=== PATIENT | male | born 1975 | race Caucasian/White ===

== ENCOUNTER 2016-10-21 22:05 | Emergency (ER) | payer OTHER ==
[~2016-10-21] VITALS: Ht 170.2 cm; Wt 60.0 kg
[2016-10-21 22:10] VITALS: BP 126/66
== END 2016-10-21 23:38 | disposition home or self-care (01) ==
LOC: ED 22:25
DX: S59.901A Unspecified injury of right elbow, initial encounter (principal); S00.81XA Abrasion of other part of head, initial encounter; W01.0XXA Fall on same level from slipping, tripping and stumbling without subsequent striking against object, initial encounter; Y92.89 Other specified places as the place of occurrence of the external cause; Y93.89 Activity, other specified; Y99.8 Other external cause status
CPT/HCPCS: 99284

== ENCOUNTER 2016-11-08 16:42 | Inpatient (IN) | payer OTHER ==
[~2016-11-08] VITALS: Ht 170.2 cm; Wt 59.4 kg
[2016-11-08] MEDS ORDERED: PLEASE ENTER HEIGHT AND WEIGHT MC SCH (17:00)
[2016-11-08] MEDS ORDERED: BUPIVACAINE/PF-EPI 0.25% 1:200K INFIL ONE (17:00)
[2016-11-08] MEDS ORDERED: SODIUM CHLORIDE 0.9% 1,000ML IVBOLUS ONE (17:00)
[2016-11-08] MEDS ORDERED: SODIUM CHLORIDE FLUSH 10ML SYR IVF ONE (17:00)
[2016-11-08] MEDS ORDERED: ZIPR60CA2 PO (17:01)
[2016-11-08 17:22] LABS: ASPARTATE AMINO TRANSFERASE 13 U/L (15-37); BLOOD UREA NITROGEN 14 mg/dL (7-18)
[2016-11-08] MEDS ORDERED: BUPIVACAINE 0.25% ONE (17:31)
[2016-11-08 17:35] LABS: IS PT STATUS REG ER OR PRE ER? YES
[2016-11-08] MEDS ORDERED: NITROGLYCERIN 0.4 MG BOTTLE (25 TABS) SL PRN (19:30)
[2016-11-08] MEDS ORDERED: hydrALAzine 20 MG/ML, 1ML IVPush PRN (19:30)
[2016-11-08] MEDS ORDERED: PANTOPRAZOLE 40 MG IV IVPush SCH (19:30)
[2016-11-08] MEDS ORDERED: ZIPRASIDONE HCL 60 MG PO SCH (21:00)
[2016-11-08] MEDS ORDERED: ZIPRASIDONE 20MG CAPSULE ONE (21:32)
[2016-11-08 22:52] VITALS: BP 133/89
[2016-11-09] MEDS: TEMAZEPAM 15 MG CAPSULE PO PRN ×2 (02:37)
[2016-11-09] MEDS: ACETAMINOPHEN 325 MG TABLET PO PRN ×2 (02:37→16:47)
[2016-11-09 02:42] VITALS: BP 113/70
[2016-11-09 05:34] LABS: BLOOD UREA NITROGEN 20 mg/dL (7-18)
[2016-11-09] MEDS: PANTOPROZOLE 40MG TABLET PO SCH (07:30)
[2016-11-09] MEDS: HEPARIN 5,000 UNITS/ML, 1ML SQ SCH ×3 (07:59→16:42)
[2016-11-09 08:00] VITALS: BP 110/78
[2016-11-09 09:59] LABS: IS PT STATUS REG ER OR PRE ER? NO
[2016-11-09] MEDS ORDERED: REGADENOSON 0.4 MG/5 ML SYRINGE ONE (10:42)
[2016-11-09] MEDS ORDERED: NICOTINE 7 MG/24 HR PATCH.TD24 TD SCH (13:00)
[2016-11-09 13:34] VITALS: BP 145/93
[2016-11-09] MEDS: ZIPRASIDONE 20MG CAPSULE PO SCH ×2 (13:37→22:25)
[2016-11-09] MEDS ORDERED: LORazepam 2 MG/ML, 1ML IVPush ONE (17:00)
[2016-11-09] MEDS ORDERED: GADOBUTROL 7.5 MMOL/7.5 ML PFS ONE (18:05)
[2016-11-09 20:00] VITALS: BP_SYST 103; BP_SYST 111; BP_SYST 95; BP_DIAS 62; BP_DIAS 76; BP_DIAS 78
[2016-11-10] MEDS: TEMAZEPAM 15 MG CAPSULE PO PRN (00:01)
[2016-11-10] MEDS: ACETAMINOPHEN 325 MG TABLET PO PRN (00:01)
[2016-11-10] MEDS: HEPARIN 5,000 UNITS/ML, 1ML SQ SCH ×2 (00:02→09:45)
[2016-11-10 02:00] VITALS: BP_SYST 100; BP_SYST 104; BP_SYST 114; BP_DIAS 67; BP_DIAS 73; BP_DIAS 78
[2016-11-10 08:00] VITALS: BP_SYST 101; BP_SYST 104; BP_SYST 110; BP_DIAS 70; BP_DIAS 73; BP_DIAS 82
[2016-11-10] MEDS ORDERED: DIPHENHYDRAMINE 50 MG/ML, 1ML IVPush ONE (09:00)
[2016-11-10] MEDS: PANTOPROZOLE 40MG TABLET PO SCH (09:44)
[2016-11-10] MEDS: ZIPRASIDONE 20MG CAPSULE PO SCH (09:45)
[2016-11-10] MEDS ORDERED: FAMOTIDINE 20 MG/2 ML IVPush ONE (10:00)
[2016-11-10] MEDS ORDERED: methylPREDNISolone SOD SUCC 125 MG/2 ML IVPush ONE (10:00)
== END 2016-11-10 15:26 | disposition home or self-care (01) | DRG 312 ==
LOC: ED 18:46 → EDIP 19:09 → 4EST 22:30 → OBSVTOIN 11-09 16:41
PROVIDERS: ADMIT Internal Medicine
PROC: 0HQ1XZZ Repair Face Skin, External Approach (ICD-10-PCS; principal; 2016-11-08)
DX: R55 Syncope and collapse (principal); R07.89 Other chest pain; S01.81XA Laceration without foreign body of other part of head, initial encounter; F25.9 Schizoaffective disorder, unspecified; Z72.0 Tobacco use; Z88.8 Allergy status to other drugs, medicaments and biological substances; Z91.041 Radiographic dye allergy status; Z91.013 Allergy to seafood; K21.9 Gastro-esophageal reflux disease without esophagitis
CPT/HCPCS: 12011; 36415; 70553; 71010; 71275; 78452; 80048; 80053; 80061; 82533; 82607; 82746; 83735; 84439; 84443; 84484; 85025; 85379; 85610; 85730; 86141; 93005; 93017; 93306; 93880; A9585; G0378; J1644; J2785; A9502; C9898; J1200; J2060; J2930; S0028

== ENCOUNTER 2017-09-01 22:58 | Emergency (ER) | payer MEDICAID ==
[~2017-09-01] VITALS: Ht 170.2 cm; Wt 66.9 kg
[~2017-09-01 22:58] MED LIST: ZIPR60CA2 PO
[2017-09-01 23:08] VITALS: BP 149/99
== END 2017-09-01 23:55 | disposition left against medical advice (07) ==
LOC: ED 23:49
DX: F99 Mental disorder, not otherwise specified (principal); Z53.21 Procedure and treatment not carried out due to patient leaving prior to being seen by health care provider

== ENCOUNTER 2019-04-07 16:38 | Emergency (ER) | payer MEDICAID ==
[~2019-04-07] VITALS: Ht 170.2 cm; Wt 78.1 kg
[2019-04-07 16:42] VITALS: BP 114/82
[2019-04-07] MEDS ORDERED: PROPARACAINE OPHTH 0.5%, 15ML ONE (16:57)
[2019-04-07] MEDS ORDERED: FLUORESCEIN OPHTHALMIC 1 MG STRIP ONE (16:57)
--- NOTE | 2019-04-07 17:03 | NUR ---
PA TO BEDSIDE FOR ASSESSMENT.
--- NOTE | 2019-04-07 17:23 | NUR ---
THIS IS A 43YO MALE THAT STATES HIS "EYES HURT AND THEY HAVEN'T BEEN WATERING". PT REPORTS THIS BEGAN ABOUT 2 MONTHS AGO BUT HAS GOTTEN WORSE TODAY AFTER HE WOKE UP. PT STATES TO CLEAR HIS VISION HE HAS TO RUB HIS EYES. PT IS SITTING IN CHAIR. NADN CONVERSING IN FULL SENTENCES.
[2019-04-07] MEDS ORDERED: PROPARACAINE OPHTH 0.5%, 15ML EACHEYE ONE (17:30)
[2019-04-07] MEDS ORDERED: FLUORESCEIN OPHTHALMIC 1 MG STRIP EACHEYE ONE (17:30)
== END 2019-04-07 18:11 | disposition home or self-care (01) ==
LOC: ED 18:02
DX: H10.023 Other mucopurulent conjunctivitis, bilateral (principal); S05.01XA Injury of conjunctiva and corneal abrasion without foreign body, right eye, initial encounter; X58.XXXA Exposure to other specified factors, initial encounter; J30.2 Other seasonal allergic rhinitis; F25.9 Schizoaffective disorder, unspecified; Y93.89 Activity, other specified; Y92.89 Other specified places as the place of occurrence of the external cause; Y99.8 Other external cause status
CPT/HCPCS: 99283

== ENCOUNTER 2019-04-29 12:20 | Emergency (ER) | payer MEDICAID ==
[~2019-04-29] VITALS: Ht 170.2 cm; Wt 74.9 kg
[2019-04-29 12:23] VITALS: BP 122/81
--- NOTE | 2019-04-29 12:50 | NUR ---
PT AMBULATED TO ROOM FROM LOBBY WITH STEADY GAIT
[2019-04-29] MEDS ORDERED: IBUPROFEN 600 MG TABLET PO ONE (13:00)
[2019-04-29] MEDS ORDERED: IBUPROFEN 200 MG TABLET ONE (13:02)
== END 2019-04-29 13:09 | disposition home or self-care (01) ==
LOC: ED 13:00
DX: K08.89 Other specified disorders of teeth and supporting structures (principal); F25.9 Schizoaffective disorder, unspecified
CPT/HCPCS: 99283

== ENCOUNTER 2019-05-07 12:42 | Emergency (ER) | payer MEDICAID ==
[~2019-05-07] VITALS: Ht 170.2 cm; Wt 80.0 kg
[2019-05-07 12:55] VITALS: BP 125/87
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
[2019-05-07 13:32] LABS: BASOPHILS # (AUTO) 0.05 x10^3/uL (0-0.1); BASOPHILS % (AUTO) 0 % (0-1); EOSINOPHILS # (AUTO) 0.13 x10^3/uL (0-0.4); EOSINOPHILS % (AUTO) 1 % (1-7); LYMPHOCYTES # (AUTO) 2.44 x10^3/uL (1-3.4); LYMPHOCYTES % (AUTO) 18 % (22-44); MD NO; MEAN CORPUSCULAR HEMOGLOBIN 31.2 pg (27.5-34.5); MEAN CORPUSCULAR HGB CONC 33.4 g/dL (33.2-36.2); MEAN CORPUSCULAR VOLUME 93.6 fL (81-97); MEAN PLATELET VOLUME 8.5 fL (7.4-10.4); MONOCYTES # (AUTO) 0.57 x10^3/uL (0.2-0.8); MONOCYTES % (AUTO) 4 % (2-9); NEUTROPHILS # (AUTO) 10.34 x10^3/uL (1.8-6.8); NEUTROPHILS % (AUTO) 77 % (42-75); PLATELET COUNT 292 x10^3/uL (130-400); RED CELL DISTRIBUTION WIDTH 13.1 % (9.4-14.8)
--- NOTE | 2019-05-07 13:38 | NUR ---
REPORT TO ROBE
[2019-05-07] MEDS ORDERED: BENZ2AMP4 PO (13:39)
[2019-05-07] MEDS ORDERED: QUET200T7 PO (13:40)
[2019-05-07] MEDS ORDERED: HALDOL (13:40)
[2019-05-07 13:41] LABS: ALBUMIN 3.9 g/dL (3.4-5.0); ANION GAP 4 mmol/L (5-15); CALCIUM 8.7 mg/dL (8.5-10.1); CHLORIDE 107 mmol/L (98-107); CREATININE 0.72 mg/dL (0.7-1.3); SALICYLATE LEVEL 5.1 mg/dL (2.8-20.0)
--- NOTE | 2019-05-07 13:44 | NUR ---
RECEIVED REPORT FROM ERIC BARRAZA. PT RESTING ON [facility]. LON. SITTER AT BEDSIDE. ROOM SECURED.
[2019-05-07 13:49] LABS: AMPHETAMINE SCREEN, URINE Negative (Negative); BARBITURATE SCREEN, URINE Negative (Negative); CANNABINOID SCREEN, URINE Negative (Negative); METHADONE SCREEN, URINE Negative (Negative); OPIATE SCREEN, URINE Negative (Negative)
[2019-05-07 13:55] LABS: BENZODIAZEPINE SCREEN, URINE Negative (Negative); COCAINE SCREEN, URINE Negative (Negative)
--- NOTE | 2019-05-07 14:07 | NUR ---
BREAK RN: MORALES IBARRA AT BEDSIDE ASSESSING PT NOW.
--- NOTE | 2019-05-07 14:07 | NUR ---
BREAK RN: FOOD ORDERED FOR PT.
[2019-05-07] MEDS ORDERED: PRED5DRO20 OP (14:23)
[2019-05-07] MEDS ORDERED: AMOXICILLIN (14:23)
[2019-05-07] MEDS ORDERED: QUETIAPINE 25MG TABLET PO ONE (14:30)
--- NOTE | 2019-05-07 14:51 | NUR ---
PT RESTING ON GURALEJANDRO. LON. SITTER REMAINS AT BEDSIDE. ROOM REMAINS SECURE. SI LUNCH TRAY PROVIDED FOR PT.
--- NOTE | 2019-05-07 15:38 | NUR ---
PT RESTING ON YASMIN. LON. SITTER REMAINS AT BEDSIDE. ROOM REMAINS SECURE.
[2019-05-07] MEDS ORDERED: QUETIAPINE 25MG TABLET ONE (15:39)
--- NOTE | 2019-05-07 15:52 | NUR ---
REPORT GIVEN TO Shala, RECEIVING RN IRAIDAU. ALL QUESTIONS ANSWERED. AWAITING PT TRANSPORT.
[2019-05-08] MEDS ORDERED: [UNRECOGNIZED DRUG - CODE] OP (07:22)
== END 2019-05-07 16:38 ==
LOC: ED 14:36
DX: R45.851 Suicidal ideations (principal); F20.9 Schizophrenia, unspecified
CPT/HCPCS: 36415; 80048; 80307; 82040; 85025; 99285

== ENCOUNTER 2019-05-07 16:25 | Inpatient (IN) | payer MEDICAID ==
[2019-05-06] MEDS: BENZTROPINE 1 MG TABLET PO SCH (21:00)
[~2019-05-07] VITALS: Ht 170.2 cm; Wt 74.7 kg
[~2019-05-07 16:25] MED LIST changes: +AMOXICILLIN; +BENZ2AMP4 PO; +HALDOL; +PRED5DRO20 OP; +QUET200T7 PO
[2019-05-07 16:30] VITALS: BP 119/81
[2019-05-07] MEDS ORDERED: POLYETHYLENE GLYCOL 17 GM PACKET PO PRN (17:00)
[2019-05-07] MEDS ORDERED: ONDANSETRON ODT 4 MG PO PRN (17:00)
[2019-05-07] MEDS ORDERED: BISACODYL 10 MG SUPP PR PRN (17:00)
[2019-05-07] MEDS ORDERED: DOCUSATE 100 MG CAPSULE PO PRN (17:00)
[2019-05-07] MEDS ORDERED: LORazepam 1MG TABLET PO PRN (17:00)
[2019-05-07] MEDS ORDERED: PLEASE ENTER HEIGHT AND WEIGHT MC SCH ×2 (17:30)
[2019-05-07 17:58] VITALS: BP 119/81
[2019-05-07] MEDS: NICOTINE 14MG/24 HR PATCH.TD24 TD SCH (18:47)
[2019-05-07 19:27] VITALS: BP 91/51
[2019-05-07] MEDS: ZIPRASIDONE 20MG CAPSULE PO SCH (21:00)
[2019-05-07] MEDS: QUETIAPINE 100MG TABLET PO SCH (21:00)
[2019-05-08] MEDS ORDERED: FLU VACC QS2019-20 36MOS UP/PF 0.5 ML IM-VACC ONE (04:00)
[2019-05-08 05:27] LABS: MICROSCOPIC NOT IND
[2019-05-08 05:42] LABS: CULTURE INDICATED? NO
[2019-05-08 05:51] LABS: CHOL/HDL RATIO 4.7; LDL/HDL RATIO 2.9 (0.5-3.0)
[2019-05-08] MEDS ORDERED: [UNRECOGNIZED DRUG - CODE] OP (07:22)
[2019-05-08 07:30] VITALS: BP 98/64
[2019-05-08 07:34] VITALS: BP 128/88
[2019-05-08] MEDS ORDERED: PROPYLENE GLYCOL OP PRN (09:00)
[2019-05-08] MEDS ORDERED: PEG OP PRN (09:00)
[2019-05-08] MEDS: BENZTROPINE 1 MG TABLET PO SCH ×2 (09:15→20:34)
[2019-05-08] MEDS: AMOXICILLIN 500 MG CAPSULE PO SCH ×2 (09:15→20:34)
[2019-05-08] MEDS: ZIPRASIDONE 20MG CAPSULE PO SCH ×2 (09:15→20:33)
[2019-05-08 19:24] VITALS: BP 103/69
[2019-05-08] MEDS: NICOTINE 14MG/24 HR PATCH.TD24 TD SCH (19:57)
[2019-05-08] MEDS: ACETAMINOPHEN 325 MG TABLET PO PRN (20:33)
[2019-05-08] MEDS: QUETIAPINE 100MG TABLET PO SCH (20:34)
[2019-05-09 07:27] VITALS: BP 125/81
[2019-05-09] MEDS: ZIPRASIDONE 20MG CAPSULE PO SCH ×2 (08:08→20:10)
[2019-05-09] MEDS: BENZTROPINE 1 MG TABLET PO SCH ×2 (08:08→20:10)
[2019-05-09] MEDS: AMOXICILLIN 500 MG CAPSULE PO SCH ×2 (08:09→20:10)
[2019-05-09] MEDS: NICOTINE 14MG/24 HR PATCH.TD24 TD SCH (09:00)
[2019-05-09] MEDS: ACETAMINOPHEN 325 MG TABLET PO PRN ×2 (14:11→20:10)
[2019-05-09 19:35] VITALS: BP 103/72
[2019-05-09] MEDS: QUETIAPINE 100MG TABLET PO SCH (20:10)
[2019-05-10 07:32] VITALS: BP 126/84
[2019-05-10] MEDS: BENZTROPINE 1 MG TABLET PO SCH ×2 (08:12→20:45)
[2019-05-10] MEDS: ZIPRASIDONE 20MG CAPSULE PO SCH ×2 (08:12→20:47)
[2019-05-10] MEDS: AMOXICILLIN 500 MG CAPSULE PO SCH ×2 (08:12→20:46)
[2019-05-10] MEDS: NICOTINE 14MG/24 HR PATCH.TD24 TD SCH (08:13)
[2019-05-10] MEDS: ACETAMINOPHEN 325 MG TABLET PO PRN (08:21)
[2019-05-10 19:29] VITALS: BP 109/74
[2019-05-10] MEDS: QUETIAPINE 100MG TABLET PO SCH (20:46)
[2019-05-11 07:34] VITALS: BP 119/82
[2019-05-11] MEDS: AMOXICILLIN 500 MG CAPSULE PO SCH ×2 (08:22→20:32)
[2019-05-11] MEDS: NICOTINE 14MG/24 HR PATCH.TD24 TD SCH (08:23)
[2019-05-11] MEDS: BENZTROPINE 1 MG TABLET PO SCH ×2 (08:23→20:32)
[2019-05-11] MEDS: ZIPRASIDONE 20MG CAPSULE PO SCH ×2 (08:23→20:31)
[2019-05-11] MEDS: ACETAMINOPHEN 325 MG TABLET PO PRN ×2 (08:23→14:12)
[2019-05-11] MEDS: CALCIUM CARBONATE 500 MG TAB.CHEW PO PRN ×2 (17:12→20:45)
[2019-05-11 19:31] VITALS: BP 112/75
[2019-05-11] MEDS: QUETIAPINE 100MG TABLET PO SCH (20:32)
[2019-05-11] MEDS ORDERED: CALCIUM CARBONATE 500 MG TAB.CHEW PO SCH (21:00)
[2019-05-11] MEDS: CYCLOPENTOLATE OPHTH SOLN 1%, 15ML EACHEYE SCH (21:00)
[2019-05-12 07:15] VITALS: BP 121/82
[2019-05-12] MEDS: ZIPRASIDONE 20MG CAPSULE PO SCH ×2 (08:18→20:34)
[2019-05-12] MEDS: BENZTROPINE 1 MG TABLET PO SCH ×2 (08:18→20:33)
[2019-05-12] MEDS: AMOXICILLIN 500 MG CAPSULE PO SCH ×2 (08:18→20:33)
[2019-05-12] MEDS: NICOTINE 14MG/24 HR PATCH.TD24 TD SCH (08:22)
[2019-05-12] MEDS: CYCLOPENTOLATE OPHTH SOLN 1%, 15ML EACHEYE SCH ×2 (09:24→21:00)
[2019-05-12 19:15] VITALS: BP 99/64
[2019-05-12] MEDS: QUETIAPINE 100MG TABLET PO SCH (20:33)
[2019-05-12] MEDS: CALCIUM CARBONATE 500 MG TAB.CHEW PO PRN (21:05)
[2019-05-13 07:35] VITALS: BP 92/69
[2019-05-13] MEDS: ZIPRASIDONE 20MG CAPSULE PO SCH ×2 (08:24→19:59)
[2019-05-13] MEDS: BENZTROPINE 1 MG TABLET PO SCH ×2 (08:24→19:59)
[2019-05-13] MEDS: CYCLOPENTOLATE OPHTH SOLN 1%, 15ML EACHEYE SCH ×2 (08:25→20:02)
[2019-05-13] MEDS: NICOTINE 14MG/24 HR PATCH.TD24 TD SCH (08:25)
[2019-05-13] MEDS: AMOXICILLIN 500 MG CAPSULE PO SCH ×2 (08:25→19:58)
[2019-05-13] MEDS: CALCIUM CARBONATE 500 MG TAB.CHEW PO PRN ×2 (13:17→19:49)
[2019-05-13 13:29] VITALS: BP 105/73
[2019-05-13 19:19] VITALS: BP 107/70
[2019-05-13] MEDS: QUETIAPINE 100MG TABLET PO SCH (19:59)
[2019-05-14 07:48] VITALS: BP 112/75
[2019-05-14] MEDS: NICOTINE 14MG/24 HR PATCH.TD24 TD SCH (08:46)
[2019-05-14] MEDS: BENZTROPINE 1 MG TABLET PO SCH ×2 (08:47→20:07)
[2019-05-14] MEDS: ZIPRASIDONE 20MG CAPSULE PO SCH ×2 (08:47→20:07)
[2019-05-14] MEDS: CYCLOPENTOLATE OPHTH SOLN 1%, 15ML EACHEYE SCH ×2 (08:54→20:06)
[2019-05-14 19:24] VITALS: BP 101/69
[2019-05-14] MEDS: QUETIAPINE 100MG TABLET PO SCH (20:06)
[2019-05-14] MEDS: CALCIUM CARBONATE 500 MG TAB.CHEW PO PRN (20:55)
[2019-05-15 07:09] VITALS: BP 107/72
[2019-05-15] MEDS: CYCLOPENTOLATE OPHTH SOLN 1%, 15ML EACHEYE SCH ×2 (09:00→20:05)
[2019-05-15] MEDS: NICOTINE 14MG/24 HR PATCH.TD24 TD SCH (09:07)
[2019-05-15] MEDS: ZIPRASIDONE 20MG CAPSULE PO SCH ×2 (09:08→20:04)
[2019-05-15] MEDS: BENZTROPINE 1 MG TABLET PO SCH ×2 (09:09→20:04)
[2019-05-15 19:32] VITALS: BP 110/69
[2019-05-15] MEDS: QUETIAPINE 100MG TABLET PO SCH (20:05)
[2019-05-16 07:31] VITALS: BP 119/75
[2019-05-16] MEDS: BENZTROPINE 1 MG TABLET PO SCH ×2 (08:39→20:33)
[2019-05-16] MEDS: ZIPRASIDONE 20MG CAPSULE PO SCH (08:39)
[2019-05-16] MEDS: NICOTINE 14MG/24 HR PATCH.TD24 TD SCH (08:48)
[2019-05-16] MEDS: CYCLOPENTOLATE OPHTH SOLN 1%, 15ML EACHEYE SCH ×2 (09:02→20:37)
[2019-05-16] MEDS: CALCIUM CARBONATE 500 MG TAB.CHEW PO PRN (11:32)
[2019-05-16] MEDS: [UNRECOGNIZED DRUG - OTHER] OP SCH ×2 (15:54→20:37)
[2019-05-16 19:37] VITALS: BP 114/73
[2019-05-16] MEDS: QUETIAPINE 100MG TABLET PO SCH (20:34)
[2019-05-17] MEDS: [UNRECOGNIZED DRUG - OTHER] OP SCH ×4 (06:27→20:13)
[2019-05-17 07:43] VITALS: BP 102/68
[2019-05-17] MEDS: BENZTROPINE 1 MG TABLET PO SCH ×2 (08:40→20:12)
[2019-05-17] MEDS: NICOTINE 14MG/24 HR PATCH.TD24 TD SCH (08:40)
[2019-05-17] MEDS: CYCLOPENTOLATE OPHTH SOLN 1%, 15ML EACHEYE SCH ×2 (08:41→20:13)
[2019-05-17] MEDS ORDERED: BENZ1TAB61 PO (13:22)
[2019-05-17] MEDS ORDERED: NICO-486 TD (13:22)
[2019-05-17] MEDS ORDERED: PEG OP (13:22)
[2019-05-17] MEDS ORDERED: CYCL2DRO5 EACHEYE (13:22)
[2019-05-17] MEDS ORDERED: PREDNISOLONE ACETATE OP (13:22)
[2019-05-17] MEDS ORDERED: PROPYLENE GLYCOL OP (13:22)
[2019-05-17] MEDS ORDERED: QUET100T PO (13:22)
[2019-05-17] MEDS: QUETIAPINE 100MG TABLET PO SCH (20:12)
[2019-05-17 21:10] VITALS: BP 119/70
[2019-05-18] MEDS: [UNRECOGNIZED DRUG - OTHER] OP SCH (05:45)
[2019-05-18 07:13] VITALS: BP 107/74
[2019-05-18] MEDS: CYCLOPENTOLATE OPHTH SOLN 1%, 15ML EACHEYE SCH (07:41)
[2019-05-18] MEDS: BENZTROPINE 1 MG TABLET PO SCH (07:42)
[2019-05-18] MEDS: NICOTINE 14MG/24 HR PATCH.TD24 TD SCH (07:42)
== END 2019-05-18 09:00 | disposition home or self-care (01) | DRG 885 ==
LOC: 3E 16:25
PROVIDERS: ADMIT Psychiatry & Neurology Psychosomatic Medicine; ATTEND Psychiatry & Neurology Psychosomatic Medicine
DX: F33.2 Major depressive disorder, recurrent severe without psychotic features (principal); F20.0 Paranoid schizophrenia; F17.210 Nicotine dependence, cigarettes, uncomplicated; Z79.899 Other long term (current) drug therapy; Z80.1 Family history of malignant neoplasm of trachea, bronchus and lung; Z88.8 Allergy status to other drugs, medicaments and biological substances
CPT/HCPCS: 36415; 71045; 80061; 81003; 82140; 82607; 84439; 84443; 90686; 93005

== ENCOUNTER 2019-07-17 12:39 | Emergency (ER) | payer MEDICAID ==
[~2019-07-17] VITALS: Ht 170.2 cm; Wt 73.7 kg
[~2019-07-17 12:39] MED LIST changes: +BENZ1TAB61 PO; +CYCL2DRO5 EACHEYE; +NICO-486 TD; +PEG OP; +PREDNISOLONE ACETATE OP; +PROPYLENE GLYCOL OP; +QUET100T PO; +[UNRECOGNIZED DRUG - CODE] OP
[2019-07-17 13:02] VITALS: BP 114/81
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
--- NOTE | 2019-07-17 13:43 | NUR ---
URINE COLLECTED AND SENT TO LAB.
--- NOTE | 2019-07-17 13:58 | NUR ---
PSYCHIATRY GOLF COURSE STARTER (MS. BASILIO) AT BEDSIDE LUNCH TRAY ORDERED (SUICIDE PRECAUTIONS)
[2019-07-17] MEDS ORDERED: QUETIAPINE 25MG TABLET PO PRN (14:00)
[2019-07-17 14:09] LABS: BASOPHILS # (AUTO) 0.03 x10^3/uL (0-0.1); BASOPHILS % (AUTO) 0 % (0-1); EOSINOPHILS # (AUTO) 0.11 x10^3/uL (0-0.4); EOSINOPHILS % (AUTO) 1 % (1-7); LYMPHOCYTES # (AUTO) 1.94 x10^3/uL (1-3.4); LYMPHOCYTES % (AUTO) 21 % (22-44); MD NO; MEAN CORPUSCULAR HEMOGLOBIN 30.8 pg (27.5-34.5); MEAN CORPUSCULAR HGB CONC 33.7 g/dL (33.2-36.2); MEAN CORPUSCULAR VOLUME 91.4 fL (81-97); MONOCYTES # (AUTO) 0.56 x10^3/uL (0.2-0.8); MONOCYTES % (AUTO) 6 % (2-9); NEUTROPHILS % (AUTO) 71 % (42-75); PLATELET COUNT 318 x10^3/uL (130-400); RED BLOOD COUNT 5.01 x10^6/uL (4.38-5.82); RED CELL DISTRIBUTION WIDTH 13.4 % (9.4-14.8)
[2019-07-17 14:15] LABS: AMPHETAMINE SCREEN, URINE Positive (Negative); BARBITURATE SCREEN, URINE Negative (Negative); BENZODIAZEPINE SCREEN, URINE Negative (Negative); CANNABINOID SCREEN, URINE Negative (Negative); COCAINE SCREEN, URINE Negative (Negative); METHADONE SCREEN, URINE Negative (Negative); OPIATE SCREEN, URINE Negative (Negative)
[2019-07-17 14:21] LABS: ALANINE AMINOTRANSFERASE 19 U/L (12-78); ALBUMIN 3.7 g/dL (3.4-5.0); ANION GAP 9 mmol/L (5-15); CALCIUM 8.9 mg/dL (8.5-10.1); CHLORIDE 104 mmol/L (98-107); CREATININE 0.74 mg/dL (0.7-1.3); SALICYLATE LEVEL 3.1 mg/dL (2.8-20.0)
[2019-07-17 14:23] LABS: ALKALINE PHOSPHATASE 50 U/L (45-117); BILIRUBIN,TOTAL 0.6 mg/dL (0.2-1.0); TOTAL PROTEIN 7.3 g/dL (6.4-8.2)
[2019-07-17] MEDS ORDERED: QUET400T7 PO (14:39)
[2019-07-17] MEDS ORDERED: HALO100A3 IM (14:42)
--- NOTE | 2019-07-17 15:07 | NUR ---
Throughput RN note: Chart faxed to [facility], [facility], [facility].
--- NOTE | 2019-07-17 16:08 | NUR ---
PT RESTING COMFORTABLY. ANOTHER WARM BLANKET PROVIDED. PT CALM, PLEASANT AND COOPERATIVE.
== END 2019-07-17 18:09 ==
LOC: ED 13:32
DX: R45.851 Suicidal ideations (principal); F20.9 Schizophrenia, unspecified; F15.10 Other stimulant abuse, uncomplicated
CPT/HCPCS: 36415; 80053; 80307; 85025; 99285

== ENCOUNTER 2019-07-17 16:04 | Inpatient (IN) | payer MEDICAID ==
[~2019-07-17] VITALS: Ht 170.2 cm; Wt 71.1 kg
[~2019-07-17 16:04] MED LIST changes: +HALO100A3 IM; +QUET400T7 PO
[2019-07-17] MEDS ORDERED: ONDANSETRON ODT 4 MG PO PRN (16:30)
[2019-07-17] MEDS ORDERED: ACETAMINOPHEN 325 MG TABLET PO PRN (16:30)
[2019-07-17] MEDS ORDERED: BISACODYL 10 MG SUPP PR PRN (16:30)
[2019-07-17] MEDS ORDERED: POLYETHYLENE GLYCOL 17 GM PACKET PO PRN (16:30)
[2019-07-17] MEDS ORDERED: DOCUSATE 100 MG CAPSULE PO PRN (16:30)
[2019-07-17 18:22] VITALS: BP 114/78
[2019-07-17 18:23] VITALS: BP 114/78
[2019-07-17] MEDS ORDERED: PLEASE ENTER HEIGHT AND WEIGHT MC SCH (18:30)
[2019-07-17 19:47] VITALS: BP 103/70
[2019-07-18 05:37] LABS: BASOPHILS # (AUTO) 0.04 x10^3/uL (0-0.1); BASOPHILS % (AUTO) 0 % (0-1); EOSINOPHILS % (AUTO) 2 % (1-7); LYMPHOCYTES # (AUTO) 2.35 x10^3/uL (1-3.4); LYMPHOCYTES % (AUTO) 26 % (22-44); MD NO; MEAN CORPUSCULAR HEMOGLOBIN 31.2 pg (27.5-34.5); MEAN CORPUSCULAR HGB CONC 34.1 g/dL (33.2-36.2); MEAN CORPUSCULAR VOLUME 91.6 fL (81-97); MEAN PLATELET VOLUME 8.1 fL (7.4-10.4); MONOCYTES # (AUTO) 0.73 x10^3/uL (0.2-0.8); MONOCYTES % (AUTO) 8 % (2-9); NEUTROPHILS # (AUTO) 5.81 x10^3/uL (1.8-6.8); NEUTROPHILS % (AUTO) 64 % (42-75); PLATELET COUNT 294 x10^3/uL (130-400); RED BLOOD COUNT 5.03 x10^6/uL (4.38-5.82); RED CELL DISTRIBUTION WIDTH 13.4 % (9.4-14.8)
[2019-07-18 05:38] LABS: CHLORIDE 107 mmol/L (98-107)
[2019-07-18 06:13] LABS: ANION GAP 6 mmol/L (5-15); CALCIUM 8.9 mg/dL (8.5-10.1); CHOL/HDL RATIO 4.8; CHOLESTEROL, TOTAL 164 mg/dL (140-239); CREATININE 0.72 mg/dL (0.7-1.3); FREE T4 (FREE THYROXINE) 1.49 ng/dL (0.76-1.46); HDL CHOL % 21 % (26-37); HDL CHOLESTEROL (DIRECT) 34 mg/dL (40-60); LDL CHOLESTEROL,CALCULATED 115 mg/dL (54-169); LDL/HDL RATIO 3.4 (0.5-3.0); TRIGLYCERIDES 76 mg/dL (50-200); VLDL CHOLESTEROL 15 mg/dL (0-25)
[2019-07-18 07:17] VITALS: BP 109/75
[2019-07-18] MEDS ORDERED: POTASSIUM CHLORIDE 20 MEQ TAB.ER.PRT PO ONE (07:30)
[2019-07-18] MEDS ORDERED: NICOTINE 14MG/24 HR PATCH.TD24 TD ONE (07:30)
[2019-07-18] MEDS: BENZTROPINE 1 MG TABLET PO SCH ×2 (08:30→20:58)
[2019-07-18 10:58] LABS: MICROSCOPIC INDICATED
[2019-07-18 11:06] LABS: AMPHETAMINE SCREEN, URINE Positive (Negative); BARBITURATE SCREEN, URINE Negative (Negative); BENZODIAZEPINE SCREEN, URINE Negative (Negative); CANNABINOID SCREEN, URINE Negative (Negative); COCAINE SCREEN, URINE Negative (Negative); METHADONE SCREEN, URINE Negative (Negative); OPIATE SCREEN, URINE Negative (Negative)
[2019-07-18 11:12] LABS: CULTURE INDICATED? NO
[2019-07-18 19:08] VITALS: BP 117/81
[2019-07-18] MEDS: QUETIAPINE 200 MG TABLET PO SCH (20:59)
[2019-07-19 07:38] VITALS: BP 116/78
[2019-07-19] MEDS: BENZTROPINE 1 MG TABLET PO SCH ×2 (09:04→20:56)
[2019-07-19] MEDS: SERTRALINE 50MG TABLET PO SCH (15:13)
[2019-07-19 19:24] VITALS: BP 100/65
[2019-07-19] MEDS: QUETIAPINE 200 MG TABLET PO SCH (20:56)
[2019-07-20 07:24] VITALS: BP 114/75
[2019-07-20] MEDS: SERTRALINE 50MG TABLET PO SCH (08:22)
[2019-07-20] MEDS: BENZTROPINE 1 MG TABLET PO SCH ×2 (08:22→20:18)
[2019-07-20 19:47] VITALS: BP 98/62
[2019-07-20] MEDS: QUETIAPINE 200 MG TABLET PO SCH (20:18)
[2019-07-21 07:33] VITALS: BP 101/68
[2019-07-21] MEDS: BENZTROPINE 1 MG TABLET PO SCH ×2 (08:25→20:41)
[2019-07-21] MEDS: SERTRALINE 50MG TABLET PO SCH (08:25)
[2019-07-21 19:15] VITALS: BP 120/80
[2019-07-21] MEDS: QUETIAPINE 200 MG TABLET PO SCH (20:41)
[2019-07-22 07:55] VITALS: BP 103/68
[2019-07-22] MEDS: BENZTROPINE 1 MG TABLET PO SCH ×2 (09:34→20:30)
[2019-07-22] MEDS: SERTRALINE 50MG TABLET PO SCH (09:34)
[2019-07-22 19:40] VITALS: BP 106/67
[2019-07-22] MEDS: QUETIAPINE 200 MG TABLET PO SCH (20:29)
[2019-07-23 07:19] VITALS: BP 108/72
[2019-07-23] MEDS: SERTRALINE 50MG TABLET PO SCH (08:41)
[2019-07-23] MEDS: BENZTROPINE 1 MG TABLET PO SCH ×2 (08:41→20:18)
[2019-07-23] MEDS ORDERED: SERT50TA28 PO (14:04)
[2019-07-23 19:12] VITALS: BP 101/67
[2019-07-23] MEDS ORDERED: NICOTINE 14MG/24 HR PATCH.TD24 TD SCH (20:00)
[2019-07-23] MEDS: QUETIAPINE 200 MG TABLET PO SCH (20:18)
[2019-07-24 07:45] VITALS: BP 102/68
[2019-07-24] MEDS: BENZTROPINE 1 MG TABLET PO SCH (08:21)
[2019-07-24] MEDS: SERTRALINE 50MG TABLET PO SCH (08:21)
== END 2019-07-24 09:35 | disposition home or self-care (01) | DRG 885 ==
LOC: 3E 17:57
PROVIDERS: ADMIT Psychiatry & Neurology Psychosomatic Medicine; ATTEND Psychiatry & Neurology Psychosomatic Medicine
DX: F33.2 Major depressive disorder, recurrent severe without psychotic features (principal); F15.20 Other stimulant dependence, uncomplicated; R45.851 Suicidal ideations; E87.6 Hypokalemia; F20.0 Paranoid schizophrenia; F17.200 Nicotine dependence, unspecified, uncomplicated; G47.00 Insomnia, unspecified; Z59.0 Homelessness; Z79.899 Other long term (current) drug therapy; Z80.1 Family history of malignant neoplasm of trachea, bronchus and lung; Z82.49 Family history of ischemic heart disease and other diseases of the circulatory system
CPT/HCPCS: 36415; 80048; 80061; 80307; 81001; 82140; 82607; 84439; 84443; 85025; 93005